=== PATIENT | female | born 1980 | race Caucasian/White ===

== ENCOUNTER 2020-03-21 20:49 | Emergency (ER) | payer OTHER | END 2020-03-21 21:52 | disposition left against medical advice (07) | LOC: M.ERS 20:49 | DX: Z53.21 Procedure and treatment not carried out due to patient leaving prior to being seen by health care provider (principal) ==

== ENCOUNTER 2020-03-22 20:52 | Emergency (ER) | payer OTHER ==
[~2020-03-22] VITALS: Ht 144.8 cm; Wt 46.7 kg
[2020-03-22 22:07] VITALS: BP 133/81
== END 2020-03-22 22:07 | disposition left against medical advice (07) ==
LOC: M.ERS 20:52
DX: Z53.21 Procedure and treatment not carried out due to patient leaving prior to being seen by health care provider (principal)